=== PATIENT | male | born 1980 | race Caucasian/White ===

== ENCOUNTER 2021-07-05 17:23 | Emergency (ER) | payer OTHER ==
--- NOTE | 2021-07-05 17:56 | EDM.PDOC ---
ED HPI GENERAL MEDICAL PROBLEM - General Chief Complaint: Upper Extremity Injury/Pain Stated Complaint: RT HAND PAIN Time Seen by Provider: 07/05/21 17:55 Source of Information: Reports: Patient History Limitations: Reports: No Limitations - History of Present Illness INITIAL COMMENTS - FREE TEXT/NARRATIVE: 41-year-old male who was who was cooking dinner and states he got angry and as he was walking past the couch struck the couch with his right fist. He states that he hit the board that was running across the top of the couch and he had pain in his right ulnar hand at the distal metacarpal phalangeal joint area at about 4 PM He has noted some swelling in the area and he reports that the pain rates anywhere from a 3 to a 7/10 depending on movement or palpation over the area. Is a sharp pain with her injuries. No open wounds. He presents to the emergency department via private vehicle. There are no other associated signs or symptoms. There are no other modifying factors. Onset: Today (4 pm) Duration: Constant Location: Reports: Upper Extremity, Right (Right hand) Quality: Reports: Sharp Severity: Moderate Improves with: Reports: Rest Worsens with: Reports: Other (Palpation), Movement Context: Reports: Trauma Associated Symptoms: Reports: No Other Symptoms (Except as above.) Treatments [employer]ACH[employer]EL [employer]: Reports: Other (see below) (Nothing.) - Related Data Allergies Allergy/AdvReac Type Severity Reaction Status Date / Time No Known Allergies Allergy Verified 05/02/13 09:51 Home Meds: Home Meds Cephalexin [IJD: Cephalexin] 500 mg PO Q6HR #24 cap 08/11/16 [Rx] Past Medical History - Past Health History Medical/Surgical History: Denies Medical/Surgical History (No chronic medical problems. Surgical history as detailed below.) - Past Surgical History HEENT Surgical History: Reports: Oral Surgery ([place] teeth extraction), Tonsillectomy Social & Family History - Tobacco Use Tobacco Use Status *Q: Current Every Day Tobacco User - Caffeine Use Caffeine Use: Reports: Coffee, Soda - Alcohol Use Alcohol Use History: Yes Alcohol Use Frequency: Weekly - Living Situation & Occupation Occupation: Employed (works at [employer]) Review of Systems - Review of Systems Review Of Systems: See Below Constitutional: Denies: Chills, Fever Eyes: Denies: Pain, Vision Change Ears: Denies: Dizziness, Pain Nose: Denies: Congestion, Pain Mouth/Throat: Denies: Pain, Painful Swallowing Respiratory: Denies: Shortness of Breath, Cough Cardiovascular: Denies: Chest Pain, Lightheadedness GI/Abdominal: Denies: Abdominal Pain, Nausea Genitourinary: Denies: Hematuria Musculoskeletal: Reports: Hand Pain. Denies: Back Pain Skin: Denies: Rash, Wound Neurological: Denies: Dizziness, Headache Psychiatric: Denies: Anxiety ED EXAM, GENERAL - Physical Exam Exam: See Below Exam Limited By: No Limitations General Appearance: Alert, WD/WN, Mild Distress Eye Exam: Bilateral Eye: EOMI, Normal Inspection, PERRL Ears: Normal External Exam, Hearing Grossly Normal Ear Exam: Bilateral Ear: Auricle Normal Nose: Normal Inspection, Normal Mucosa, No Blood Throat/Mouth: Normal Oropharynx, Normal Voice, No Airway Compromise Head: Atraumatic, Normocephalic Neck: Normal Inspection, Supple, Non-Tender, Full Range of Motion Respiratory/Chest: No Respiratory Distress, Lungs Clear, Normal Breath Sounds, No Accessory Muscle Use, Chest Non-Tender Cardiovascular: Normal Peripheral Pulses, Regular Rate, Rhythm, No JVD Peripheral Pulses: 2+: Radial (L), Radial (R) GI/Abdominal: Normal Bowel Sounds, Soft, Non-Tender Back Exam: Normal Inspection Extremities: Normal Range of Motion, Normal Capillary Refill, Other (Tender over the fourth and fifth metacarpal areas and particularly over the MCP joint areas. There is no crepitus. There are no open wounds.) Neurological: Alert, Oriented, CN II-XII Intact, Normal Cognition, No Motor/Sensory Deficits Psychiatric: Normal Affect Skin Exam: Warm, Dry, Intact, Normal Color, No Rash Course - Orders/Labs/Meds Orders: Active Orders 24 hr Category Date Time Status Luis Bandage [RC] ONETIME Care 07/05/21 18:39 Active Hand Comp Min 3V Rt [CR] Stat Exams 07/05/21 17:55 Taken - Radiology Interpretation Free Text/Narrative:: X-ray of right hand shows no definite fracture per my read. - Re-Assessments/Exams Free Text/Narrative Re-Assessment/Exam: 07/05/21 18:33: X-ray of the right hand showed no fracture. He appears to have a contusion to the dorsal ulnar right hand. He can take Tylenol and ibuprofen as needed for pain. He should have activity as tolerated with the hand. Luis wrap for comfort and support. Precautions and reasons for return to the emergency department discussed with the patient while he was in the emergency department and were detailed in the patient's discharge instructions. Departure - Departure Time of Disposition: 18:40 Disposition: Home, Self-Care 01 Condition: Good Clinical Impression: Contusion of right hand Qualifiers: Encounter type: initial encounter Qualified Code(s): S60.221A - Contusion of right hand, initial encounter - Discharge Information Instructions: Hand Contusion, [id number] Referrals: PCP,None [Primary Care Provider] - Forms: ED Department Discharge, ED Return to Work/School Form Additional Instructions: The x-ray of your right hand showed no definite fracture.. I have a bruise or contusion to this area of your hand. Luis wrap for comfort and support. You can apply ice packs intermittently to the bruised area for the next 2 days. You can take Tylenol and ibuprofen as needed for pain. Use your hand as tolerated. Back to the emergency department for marked increase in pain, redness, increased swelling or any other concerning signs or symptoms. - My Orders Last 24 Hours: My Active Orders 07/05/21 17:55 Hand Comp Min 3V Rt [CR] Stat 07/05/21 18:39 Luis Bandage [RC] ONETIME - Assessment/Plan Last 24 Hours: My Active Orders 07/05/21 17:55 Hand Comp Min 3V Rt [CR] Stat 07/05/21 18:39 Luis Bandage [RC] ONETIME
[2021-07-05 20:57] VITALS: BP 153/93; PULSE 93
== END 2021-07-05 19:10 | disposition home or self-care (01) ==
LOC: FB.ED 17:23
DX: S60.221A Contusion of right hand, initial encounter (principal); Z72.0 Tobacco use; W22.09XA Striking against other stationary object, initial encounter
CPT/HCPCS: 73130-RT; 99283

== ENCOUNTER 2022-06-18 04:27 | Emergency (ER) | payer OTHER ==
[2022-06-18] MEDS ORDERED: Cyclobenzaprine 10 MG Tab PO ONE (04:28)
[2022-06-18] MEDS ORDERED: traMADol 50 MG Tab PO ONE (04:28)
[2022-06-18 04:42] VITALS: BP 151/97; PULSE 82
== END 2022-06-18 05:02 | disposition home or self-care (01) ==
LOC: FB.ED 04:27
DX: M54.31 Sciatica, right side (principal); F17.210 Nicotine dependence, cigarettes, uncomplicated
CPT/HCPCS: 99283; A9270